=== PATIENT | female | born 1995 | race Caucasian/White ===

== ENCOUNTER 2016-06-19 21:31 | Emergency (ER) | payer BC ==
[2016-06-19] MEDS ORDERED: ONDANSETRON HCL INJ/PF 4 MG/2 ML SDV IV ONE (23:55)
[2016-06-19] MEDS ORDERED: KETOROLAC TROMETHAMINE INJ/PF 30 MG/1 ML SDV IV ONE (23:55)
[2016-06-19] MEDS ORDERED: NORMAL SALINE 1000 ML 1,000 ML IV PRN (23:55)
--- NOTE | 2016-06-19 23:55 | ER Document Report ---
ED Burn/Smoke/Toxic Fumes - General Chief Complaint: Sunburn Stated Complaint: SUNBURN Time seen by provider: 23:55 Mode of Arrival: Ambulatory Information source: Patient TRAVEL OUTSIDE OF THE [place] IN LAST 30 DAYS: No - HPI Patient complains to provider of: Other - Sunburn Onset: This afternoon Where: Outdoors Quality of pain: Burning Severity: Moderate Pain Level: 4 Associated Symptoms: Nausea Notes: Patient is a 21-year-old female presenting to the emergency room complaining of severe sunburn, having stayed on the son to [facility] between the hours of 11 and 2 today, states this evening she has developed nausea associated with her sunburn as well as chills, and the pain is severe enough that she is unable to rest comfortably, otherwise healthy female with no past medical history - Related Data Allergies/Adverse Reactions: amoxicillin [Amoxicillin] Allergy (Severe, Verified 10/22/15 22:08) Anaphylaxis Past Medical History - General Information source: Patient - Social History Smoking Status: Never Smoker Family History: Reviewed & Not Pertinent Patient has suicidal ideation: No Patient has homicidal ideation: No Renal/ Medical History: Reports: Hx Ovarian Cysts. Denies: Hx Peritoneal Dialysis - Immunizations Immunizations up to date: Yes Hx Diphtheria, Pertussis, Tetanus Vaccination: No Review of Systems - Review of Systems Constitutional: No symptoms reported EENT: No symptoms reported Cardiovascular: No symptoms reported Respiratory: No symptoms reported Gastrointestinal: No symptoms reported Genitourinary: No symptoms reported Female Genitourinary: No symptoms reported Musculoskeletal: No symptoms reported Skin: See HPI Hematologic/Lymphatic: No symptoms reported Neurological/Psychological: No symptoms reported -: Yes All other systems reviewed and negative Physical Exam - Vital signs Vitals: Temp Pulse Resp BP Pulse Ox 99.1 F 120 H 18 126/72 H 100 06/19/16 22:08 06/19/16 22:08 06/19/16 22:08 06/19/16 22:08 06/19/16 22:08 Interpretation: Normal - Notes Notes: - General General appearance: Appears well, Alert In distress: None - HEENT Head: Normocephalic, Atraumatic Eyes: Normal Conjunctiva: Normal Extraocular movements intact: Yes Eyelashes: Normal Pupils: PERRL - Respiratory Respiratory status: No respiratory distress - Cardiovascular Rhythm: Regular - Abdominal Inspection: Normal - Back Back: Normal - Extremities General upper extremity: Normal inspection General lower extremity: Normal inspection - Neurological Neuro grossly intact: Yes Orientation: AAOx4 Chavies Coma Scale Eye Opening: Spontaneous Chavies Coma Scale Verbal: Oriented Lauren Coma Scale Motor: Obeys Commands Lauren Coma Scale Total: 15 - Psychological Associated symptoms: Normal affect, Normal mood - Skin Skin Temperature: Warm Skin Moisture: Dry Skin Color: Diffuse erythematous colored skin consistent with sunburn Course - Re-evaluation Re-evalutation: 06/20/16 01:28 Patient reports feeling much better at this point in time, she was advised to stay indoors for the next few days, avoid long periods of sun exposure, wears sunscreen, drink plenty fluids, return if symptoms worsen, patient acknowledges understanding and agreement with this plan - Vital Signs Vital signs: Temp Pulse Resp BP Pulse Ox 99.1 F 120 H 18 126/72 H 100 06/19/16 22:08 06/19/16 22:08 06/19/16 22:08 06/19/16 22:08 06/19/16 22:08 Discharge - Discharge Clinical Impression: Sunburn of first degree Condition: Stable Disposition: HOME, SELF-CARE Instructions: Menjivar ([facility]), Oral Narcotic Medication ([facility]) Additional Instructions: Follow up with your primary care provider in one to 2 days. Return to the emergency room immediately if symptoms worsen or any additional concerns. Forms: Return to Work
[2016-06-20] MEDS ORDERED: HYDROCODONE/ACETAMINOPHEN 5-325 MG 6 TAB/DSPK PO PRN (01:29)
[2016-06-20] MEDS ORDERED: ONDANSETRON ODT 4 MG TAB (6 TAB/DSPK) PO PRN (01:29)
[2016-06-20 08:32] VITALS: BP 117/73
== END 2016-06-20 01:40 | disposition home or self-care (01) ==
LOC: ER 21:31
DX: L55.0 Sunburn of first degree (principal); R11.0 Nausea; R68.83 Chills (without fever); Z87.892 Personal history of anaphylaxis; Z88.0 Allergy status to penicillin
CPT/HCPCS: 99282; 96361; 96374; 96375; J1885; J2405; J7030